=== PATIENT | female | born 1940 | race Caucasian/White ===

== ENCOUNTER 2017-11-14 13:20 | Outpatient (CLI) | payer MEDICARE, BC, SELFPAY ==
[2017-11-17 16:44] LABS: Vitamin D 25 Total 54.6 ng/ml (30-100)
== END 2017-11-14 13:21 ==
PROVIDERS: PCP Internal Medicine; Visit Provider Student in an Organized Health Care Education/Training Program
DX: R73.03 Prediabetes (principal); E78.5 Hyperlipidemia, unspecified; E03.9 Hypothyroidism, unspecified; K75.4 Autoimmune hepatitis
CPT/HCPCS: 36415; 82306

== ENCOUNTER 2017-11-16 00:59 | Outpatient (CLI) | payer MEDICARE, BC, SELFPAY ==
--- NOTE | 2017-11-16 12:00 | DI.REPORT_ITS ---
SYMPTOMS/DIAGNOSIS: SCREENING, Z12.39 MAMMOGRAM: Mammograms were interpreted according to the usual protocol including computer analysis with CAD system, tomosynthesis and C view imaging. The breasts are heterogeneously dense. No dominant mass or clumped microcalcification is identified in either breast. Current examination is compared with the previous examinations including September 2014 and there has been no gross interval change in appearance in comparison with the previous studies. CONCLUSION: No specific evidence of malignancy at this time. Routine screening examinations are suggested at yearly intervals in this age group according to the ACS/ACR guidelines. Category 1, breast density category C. MQSA ASSESSMENT OF FINDINGS: Negative. Category 1. Patient will receive a letter notifying them of these results. Bi-RADS category C. The breasts are heterogeneously dense, which may obscure small masses.
== END 2017-11-16 01:00 ==
PROVIDERS: PCP Internal Medicine; Visit Provider Student in an Organized Health Care Education/Training Program
DX: Z12.31 Encounter for screening mammogram for malignant neoplasm of breast (principal)
CPT/HCPCS: 77063; 77067

== ENCOUNTER 2018-03-05 09:01 | Outpatient (CLI) | payer MEDICARE, BC, SELFPAY ==
[2018-03-05 10:04] LABS: Hemoglobin A1C 6.1 % (4.5-6.2)
[2018-03-05 10:26] LABS: Anion Gap 9.3 mmol/L (3-11); BUN 19 mg/dL (7-18); CO2 28.7 mmol/L (21.0-32.0); CREATININE 0.92 mg/dL (0.55-1.02); Calcium 9.8 mg/dL (8.5-10.1); Chloride 104 mmol/L (98-107); Cholesterol 225 mg/dL (50-200); Estimated GFR 59.51 (mL/min/1.73m2); Glucose 111 mg/dL (70-100); HDL Cholesterol 59 mg/dL (40-60); LDL CHOLESTEROL 150 mg/dL (<100); Potassium 4.1 mmol/L (3.5-5.1); Sodium 142 mmol/L (136-145); Triglyceride 127 mg/dL (30-150)
== END 2018-03-05 09:21 ==
PROVIDERS: PCP Student in an Organized Health Care Education/Training Program; Visit Provider Student in an Organized Health Care Education/Training Program
DX: R73.01 Impaired fasting glucose (principal); E78.5 Hyperlipidemia, unspecified; E03.9 Hypothyroidism, unspecified; R73.9 Hyperglycemia, unspecified
CPT/HCPCS: 36415; 80048; 80061; 83721; 83036

== ENCOUNTER 2018-09-03 10:07 | Emergency (ER) | payer MEDICARE, BC, SELFPAY ==
[2018-09-03 10:15] VITALS: BP 139/72; PULSE 80; RESP 14; TEMP 36.7; O2SAT 94
--- NOTE | 2018-09-03 10:34 | DI.RAD_ITS ---
SYMPTOMS/DIAGNOSIS: RT MID WRIST PAIN AND DISTAL FOREARM PAIN RIGHT FOREARM: Two views were obtained and show no evidence of a fracture. RIGHT WRIST: Three views were obtained. Carpal alignment appears grossly intact. There is question of deformity of the navicular waist. Additional navicular view and oblique views requested to exclude nondisplaced navicular waist fracture. Navicular view of the wrist again shows a questioned deformity of the navicular waist raising the possibility of a nondisplaced navicular waist fracture. Otherwise the bones of carpus appear intact. CONCLUSION: Suspect nondisplaced navicular waist fracture.
[2018-09-03] MEDS: Lidocaine 5% Patch 1 PATCH TP (11:01)
--- NOTE | 2018-09-03 11:27 | W.ED.GENAD ---
Discharge Plan Disposition Patient Disposition: HOME Condition: Good Discharge Details Chief Complaint: Orthopedic Clinical Impression: Scaphoid fracture Primary Care Provider: Shivani Arenas ED Provider: Keenan Wells Home Meds and New Rx's Prescriptions: No Action multivitamin [Daily Vitamin] 1 EACH tablet 1 ea PO DAILY RF: 0 lutein extract-zeaxanthin ext 1 EACH capsule 1 ea PO DAILY RF: 0 salmon oil-omega-3 fatty acids [[place] Oil-1000] 1 EACH capsule 1 ea PO DAILY RF: 0 fluticasone propionate 16 GM spray,suspension 2 spry NS DAILY PRNQty: 1 RF: 2 levothyroxine 50 MCG tablet 50 mcg PO DAILY Qty: 90 RF: 3 naproxen sodium [Aleve] 220 MG tablet 220 mg PO PRN RF: 0 Discharge Instructions Instructions: Scaphoid Fracture (ED) Additional Instructions: The radiologist is concerned for a scaphoid wrist fracture. We have placed you in a thumb spica splint. Use this at all times. We will schedule orthopedic follow-up for you, they will contact you with an appointment. Please use Tylenol or Motrin as needed for pain. If you notice any worsening of your symptoms, or any new symptoms such as vomiting, diarrhea, fever, chills, shortness of breath, chest pain, numbness, weakness, or fainting , please return immediately to the emergency department for reevaluation. Please follow up with your primary care provider as soon as possible for reassessment and reevaluation. As always, it was a pleasure participating in your medical care today. Referrals: Shivani Arenas [Primary Care Provider] - Discharge Data Discharge Date/Time-TO BE ENTERED AT DEPARTURE: 09/03/18 12:04 Medical Decision Making This is a pleasant 78-year-old female who presents with right wrist pain, she does have some pain over the anatomical snuffbox. She is right-hand dominant. It began yesterday when she was lifting and carrying some heavy boxes with her significant other. Since then the pain has continued, it is worsened with movement, improved with nothing. 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 X-ray shows concern for potential scaphoid fracture at the waist. Patient has been placed in a thumb spica splint, she is tolerated this well and feels much better with this and Lidoderm patch. We will discharge home with close orthopedic follow-up. The patient requested [facility] follow-up as she states that she has seen orthopedics down there, however we can find no records of that, and [facility] denies any other recent orthopedic surgeries. We will refer for orthopedics here for further evaluation Exam(s) a RAD:XR forearm RT a RAD:XR wrist RT compl & navicular SYMPTOMS/DIAGNOSIS: RT MID WRIST PAIN AND DISTAL FOREARM PAIN RIGHT FOREARM: Two views were obtained and show no evidence of a fracture. RIGHT WRIST: Three views were obtained. Carpal alignment appears grossly intact. There is question of deformity of the navicular waist. Additional navicular view and oblique views requested to exclude nondisplaced navicular waist fracture. Navicular view of the wrist again shows a questioned deformity of the navicular waist raising the possibility of a nondisplaced navicular waist fracture. Otherwise the bones of carpus appear intact. CONCLUSION: Suspect nondisplaced navicular waist fracture. Ordered By: Keenan Wells DO Exam(s) a RAD:XR forearm RT a RAD:XR wrist RT compl & navicular SYMPTOMS/DIAGNOSIS: RT MID WRIST PAIN AND DISTAL FOREARM PAIN RIGHT FOREARM: Two views were obtained and show no evidence of a fracture. RIGHT WRIST: Three views were obtained. Carpal alignment appears grossly intact. There is question of deformity of the navicular waist. Additional navicular view and oblique views requested to exclude nondisplaced navicular waist fracture. Navicular view of the wrist again shows a questioned deformity of the navicular waist raising the possibility of a nondisplaced navicular waist fracture. Otherwise the bones of carpus appear intact. CONCLUSION: Suspect nondisplaced navicular waist fracture. Ordered By: Keenan Wells DO HPI General Date/Time Provider Initiated Documentation: 09/03/18 10:20. HPI Narrative: This is a 78-year-old female who presents for evaluation of right wrist pain. She is right-hand dominant. Patient states that yesterday she was lifting some heavy objects, and might have twisted the wrist a little funny. Pain is present in the lateral component of the wrist, and extends roughly 1 to 2 inches proximally. It is slightly worsened with movement of the fingers however she has no pain in the fingers. Notably worsened with movement of the wrist. She denies any fever, chills, numbness, tingling, or history of gout or other trauma. No other complaints at this time. No other modifying factors. Related Data Home Medications Medication Instructions Recorded Confirmed lutein extract-zeaxanthin ext 1 ea PO DAILY 07/15/14 multivitamin [Daily Vitamin] 1 ea PO DAILY 07/15/14 salmon oil-omega-3 fatty acids 1 ea PO DAILY 07/15/14 [Aledo Oil 1,000 Mg Softgel] fluticasone propionate 2 spry NS DAILY PRN #1 inh 06/16/15 levothyroxine 50 mcg PO DAILY #90 tab-cap 07/22/15 naproxen sodium [Aleve] 220 mg PO PRN 01/27/16 Allergies Allergy/AdvReac Type Severity Reaction Status Date / Time tobramycin AdvReac Mild Ophthalmic Unverified 09/03/18 11:36 tobramycin caused rash General Stated Complaint: Orthopedic CECELIA: 4 Review of Systems Review of Systems All systems reviewed & are unremarkable except as noted in HPI and below PFSH Surgical History Tonsillectomy stapendectomy Family History Mother Otosclerosis of both ears Brain tumor Father No problems noted. Grandmother Diabetes Stroke Thyroid condition Grandmother Throat cancer Stroke Sister Otosclerosis of both ears Other Arthritis Social History Smoking/Tobacco Use Status: Never Drug use: Never Do you feel safe at home: Yes Do you feel safe in your relationship?: Yes Exam Narrative Exam Narrative: 1.Const: Well-nourished, Well-developed, appearing stated age 2.Eyes: PERRL, no conjunctival injection, and symmetrical lids. 3.ENT: Atraumatic external nose and ears. Moist MM. Neck: Symmetric, trachea midline, No thyromegaly. 4.CVS: +S1/S2, No murmurs or gallops. Peripheral pulses 2+ and equal in all extremities. Brisk capillary refill in all extremities. 5.RESP: Unlabored respiratory effort. Clear to auscultation bilaterally. No wheezes rales or rhonchi 6.GI: Soft, Nontender/Nondistended, No hepatosplenomegaly. No guarding or rebound. 7.MSK: Normocephalic/Atraumatic, Extremities w/o deformity. No cyanosis or clubbing, Normal movement of all extremities. Patient does have mild tenderness over the anatomical snuffbox on the right wrist, as well as the wrist in general. No pain or tenderness on palpation of the fingers hand or forearm. Normal sensation throughout, brisk capillary refill, radial pulse +2 bilaterally. Normal sensation in all fingers including two-point discrimination. Normal abduction and abduction of the thumb. Normal flexion and extension of all fingers. 8.Skin: Warm, Dry. No rashes or lesions. 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 Sensation grossly intact, no focal neurologic deficits. 10.Psych: (AAO) x3. Appropriate mood and affect Course Vital Signs Temperature 36.7 C 09/03/18 10:15 Pulse 80 09/03/18 10:15 Respiratory Rate 14 09/03/18 10:15 Blood Pressure 139/72 09/03/18 10:15 Pulse Oximetry 94 L 09/03/18 10:15 Temperature 36.7 C 09/03/18 10:15 Temperature Source Skin 09/03/18 10:15 Pulse 80 09/03/18 10:15 Respiratory Rate 14 09/03/18 10:15 Blood Pressure 139/72 09/03/18 10:15 Blood Pressure Position Sitting 09/03/18 10:15 Pulse Oximetry 94 L 09/03/18 10:15 Oxygen Delivery Method Room Air 09/03/18 10:15 Oxygen Flow Rate 0 09/03/18 10:15 Pain Level 4 09/03/18 10:15
== END 2018-09-03 12:04 | disposition home or self-care (01) ==
PROVIDERS: Emergency Provider Student in an Organized Health Care Education/Training Program; PCP Student in an Organized Health Care Education/Training Program
DX: S62.011A Displaced fracture of distal pole of navicular [scaphoid] bone of right wrist, initial encounter for closed fracture (principal); W50.3XXA Accidental bite by another person, initial encounter
CPT/HCPCS: 99284; 73090; 73110; 99282; L3807

== ENCOUNTER 2018-10-08 08:19 | Outpatient (CLI) | payer MEDICARE, BC, SELFPAY ==
[2018-10-08 10:14] LABS: Hemoglobin A1C 6.4 % (4.5-6.2)
[2018-10-08 11:03] LABS: BUN 14 mg/dL (7-18); CREATININE 0.78 mg/dL (0.55-1.02); Calcium 9.5 mg/dL (8.5-10.1); Calculated LDL 124 mg/dL; Chloride 104 mmol/L (98-107); Cholesterol 200 mg/dL (50-200); Glucose 114 mg/dL (70-100); HDL Cholesterol 52 mg/dL (40-60); Potassium 4.2 mmol/L (3.5-5.1); Sodium 143 mmol/L (136-145); TSH 3.58 uIU/mL (0.358-3.74); Triglyceride 124 mg/dL (30-150)
== END 2018-10-08 08:39 ==
PROVIDERS: PCP Student in an Organized Health Care Education/Training Program; Visit Provider Student in an Organized Health Care Education/Training Program
DX: E78.00 Pure hypercholesterolemia, unspecified (principal); E03.9 Hypothyroidism, unspecified; R73.01 Impaired fasting glucose; R73.03 Prediabetes; K75.9 Inflammatory liver disease, unspecified
CPT/HCPCS: 36415; 80048; 80061; 83721; 83036; 84443

== ENCOUNTER 2019-02-05 01:26 | Outpatient (CLI) | payer MEDICARE, BC, SELFPAY ==
--- NOTE | 2019-02-05 16:50 | DI.DEXA_ITS ---
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 COMPARISON: No exams were available for comparison FINDINGS: Findings for lumbar spine scanning are T-score 1.0. Findings for left forearm scanning or T-score -0.5. Findings for left hip scanning are T-score -1.1 with left femoral neck T-score -1.3. IMPRESSION: Findings consistent with osteopenia according to the WHO criteria. Please note that the lateral verte bral scanogram shows mild anterior compression fracture of L2 vertebral body.
== END 2019-02-05 01:46 ==
PROVIDERS: PCP Student in an Organized Health Care Education/Training Program
DX: M80.08XA Age-related osteoporosis with current pathological fracture, vertebra(e), initial encounter for fracture (principal); M85.88 Other specified disorders of bone density and structure, other site
CPT/HCPCS: 77080

== ENCOUNTER 2020-01-13 01:36 | Outpatient (CLI) | payer MEDICARE, BC, SELFPAY ==
[2020-01-14 17:46] LABS: COVID-19 RT-PCR Result NEGATIVE (Negative)
== END 2020-01-13 01:56 ==
PROVIDERS: PCP Student in an Organized Health Care Education/Training Program; Visit Provider Nurse Practitioner Family
DX: Z11.59 Encounter for screening for other viral diseases (principal)
CPT/HCPCS: U0003

== ENCOUNTER 2020-12-09 20:43 | Outpatient (CLI) | payer MEDICARE, BC, SELFPAY ==
[2020-12-09 10:09] LABS: Abs Immature Grans 0.02 10^3/uL (0.0-0.06); Absolute Basophil Count 0.09 10^3/uL (0.0-0.2); Absolute Eosinophil Count 0.45 10^3/uL (0.0-0.7); Absolute Lymphocyte Count 1.94 10^3/uL (1.2-3.4); Absolute Monocyte Count 0.53 10^3/uL (0.1-0.8); Absolute Neutrophil Count 2.58 10^3/uL (1.2-6.7); Basophils % 1.6; ESR 12 mm/hr (0-30); HCT 41.4 % (36.0-46.0); HGB 13.7 g/dL (11.2-15.7); Immature Grans % 0.4; Lymphocytes % 34.6; MCH 30.9 pg (27.0-33.0); MCHC 33.1 % (32.0-36.0); MCV 93.5 fL (80-95); Monocytes % 9.4; Nucleated RBC 0 %; Platelet Count 163 10^3/uL (130-400); RBC 4.43 10^6/uL (3.93-5.22); RDW 13.2 % (11.7-14.6); RDW-SD 45.7 fL; WBC 5.61 10^3/uL (4.4-10.8)
[2020-12-09 11:22] LABS: ALT 37 U/L (14-59); AST 23 U/L (15-37); Albumin 3.7 g/dL (3.4-5.0); Alkaline Phosphatase 66 U/L (46-116); Bilirubin, Direct 0.3 mg/dL (0.0-0.2); Bilirubin, Total 1.5 mg/dL (0.2-1.0); C-Reactive Protein 0.29 mg/dL (0.0-0.3); Estimated GFR 53.62 (mL/min/1.73m2); Total Protein 7.2 g/dL (6.4-8.2)
== END 2020-12-09 20:44 | disposition home or self-care (01) ==
LOC: LBO 20:52
PROVIDERS: PCP Student in an Organized Health Care Education/Training Program; Visit Provider Internal Medicine
DX: M25.512 Pain in left shoulder (principal); G89.29 Other chronic pain; M25.511 Pain in right shoulder; M25.551 Pain in right hip; M25.552 Pain in left hip; M13.0 Polyarthritis, unspecified; M54.2 Cervicalgia
CPT/HCPCS: 36415; 80076; 85652; 82565; 85025; 86140

== ENCOUNTER 2021-02-02 15:00 | Outpatient (REF) | payer MEDICARE, BC, SELFPAY ==
[2021-02-08 14:51] LABS: Helicobacter pylori Ag, Feces Negative (Negative)
== END 2021-02-02 15:01 | disposition home or self-care (01) ==
LOC: LBN 15:00
PROVIDERS: PCP Student in an Organized Health Care Education/Training Program; Visit Provider Internal Medicine Gastroenterology
DX: R10.13 Epigastric pain (principal); R14.0 Abdominal distension (gaseous); R10.10 Upper abdominal pain, unspecified
CPT/HCPCS: 87338

== ENCOUNTER 2022-08-08 10:20 | Emergency (ER) | payer MEDICARE, BC, SELFPAY ==
[2022-08-08] VITALS (72 sets, daily range): BP systolic 130–149; BP diastolic 56–80; PULSE 49–70; RESP 12–23; TEMP 36.8; O2SAT 77–98
--- NOTE | 2022-08-08 10:49 | W.ED.GENAD ---
Discharge Plan Disposition Patient Disposition: Home Condition: Stable Discharge Details Clinical Impression: COVID Primary Care Provider: Shivani Arenas ED Provider: Oriana Hobson Home Meds and New Rx's Prescriptions: Continued multivitamin [Daily Vitamin] 1 EACH tablet 1 ea PO DAILY lutein extract-zeaxanthin ext 1 EACH capsule 1 ea PO DAILY Patient Comments: unsure of dose-LH salmon oil-omega-3 fatty acids [[place] Oil-1000] 1 EACH capsule 1 ea PO DAILY fluticasone propionate 16 GM spray,suspension 2 spry NS DAILY PRNQty: 1 levothyroxine 50 MCG tablet 50 mcg PO DAILY Qty: 90 naproxen sodium [Aleve] 220 MG tablet 220 mg PO PRN Discharge Instructions Instructions: Viral Syndrome (ED) Additional Instructions: Your labs and chest x-ray are reassuring here today. Your continued malaise is likely associated with a known COVID virus. Please continue to encourage hydration. Please finish out your course of Paxlovid. Your liver panel was reassuring here today. Please follow-up with primary care at the end of the week for reevaluation. If you develop increased chest pain, shortness of breath or other new/worsening symptom please seek care urgently once again. Referrals: Shivani Arenas [Primary Care Provider] - Discharge Data Discharge Date/Time-TO BE ENTERED AT DEPARTURE: 08/08/22 14:01 Medical Decision Making Patient is a pleasant 82-year-old female presenting today with chief complaint of being COVID-positive and feeling generally unwell despite starting Paxlovid 3 days ago. She is accompanied by her . She is not feeling significantly worse but states that she was seen she would be feeling improved. Also endorses some chest tightness which began 5 days ago. She is not able to identify any triggers of this discomfort, is not currently endorsing any discomfort. Pain does not radiate. It is not worsened with taking a deep breath. There is no pleuritic nature of this discomfort. She also has not noted that it sisterly worse when exerting herself. She denies any shortness of breath. Denies any history of heart disease, blood clots. She does report that she has a history of liver dysfunction. This had not been checked at our facility recently. He is typically followed at [facility]. On exam, patient appears nontoxic. Vital signs are stable. She appears well-hydrated. Reports that she is been urinating more than typical but that she has been increasing her fluids. Denies any dysuria. Her lungs are clear, normal cardiac exam. Posterior oropharynx is mildly erythematous but no exudate or swelling is appreciated. No palpable lymphadenopathy. She does have some retraction of the bilateral tympanic membranes and endorses some discomfort. I am not see evidence to suggest a bacterial infection. With her rhinorrhea and increased nasal congestion, this may be associated with eustachian tube dysfunction. Patient reports that this has been a problem for her in the past. She does not have any lower extremity edema or calf tenderness. Primary concern at this time is continuation of her COVID symptoms. Also considered potential ACS given her chest discomfort although this does not sound to be exertionally based. Not having any pleuritic pain, shortness of breath and is oxygenating well with normal heart rate. Do not have suspicion at this time for pulmonary embolism. Also considered potential bacterial regarding infection such as pneumonia. Will obtain a chest x-ray, baseline labs. Will obtain EKG. Also concerned with the report of her previous liver dysfunction and Paxlovid. LUNGS: Poorly inflated but clear.? No pleural abnormality seen. HEART: Normal size. AORTA: Normal diameter. BONES: Unremarkable for age.? Soft tissues: Unremarkable. IMPRESSION: No acute? findings. Labs reviewed. No leukocytosis. Stable H&H. CMP without significant abnormality. Troponin within normal limits. Given the length of time she is been having her chest discomfort, I do not feel that repeat troponin is warranted at this time. She contitnues to be hemodynamically stable. Has not had any discomfort here. Hydrating orally. Advised on expected course of illness. Strict return precautions given. Encouraged close f/u with PCP. All of her questions and concerns were addressed, she is in agreement with this plan. HPI General Date/Time Provider Initiated Documentation: 08/08/22 10:20. Limitations to Documentation: no limitations. Information obtained by: patient, family and RN notes reviewed. History of Present Illness 82 year old F presents to the emergency department with the chief complaint of known COVID positive, continued fatigue, described as moderate, Quality is described as other (fatigue, denies pain), Patient started experiencing this day(s) and it has been constant. Immobilization improves symptom(s), Movement worsens symptoms . Patient notes cough, loss of appetite and malaise; denies chest pain, fever/chills, headaches, nausea/vomiting, rash, shortness of breath and syncope. Patient did receive the following treatments prior to arrival, other (on Paxlovid) Related Data Home Medications Medication Instructions Recorded Confirmed lutein extract 15 mg-zeaxanthin 1 ea PO DAILY 07/15/14 extract 0.7 mg capsule multivitamin (Daily Vitamin tablet) 1 ea PO DAILY 07/15/14 salmon oil-omega-3 fatty acids 1 ea PO DAILY 07/15/14 1,000 mg-200 mg capsule ([place] Oil-) fluticasone propionate 50 2 spry NS DAILY PRN #1 inh 06/16/15 mcg/actuation nasal spray,suspension levothyroxine 50 mcg tablet 50 mcg PO DAILY #90 tab-caps 07/22/15 naproxen sodium 220 mg tablet 220 mg PO PRN 01/27/16 (Aleve) Allergies Allergy/AdvReac Type Severity Reaction Status Date / Time tobramycin AdvReac Mild Ophthalmic Unverified 09/03/18 11:36 tobramycin caused rash General Stated Complaint: GenMedical CECELIA: 3 Review of Systems Constitutional Constitutional: Reports as per HPI and Denies headache(s) Eyes Eyes: Reports as per HPI, Denies eye discharge and Denies irritation ENT Ears, Nose, Mouth, and Throat: Reports as per HPI and Denies headache(s) Cardiovascular Cardiovascular: Reports as per HPI, Denies chest pain and Denies dyspnea Respiratory Respiratory: Reports as per HPI and Denies dyspnea Gastrointestinal Gastrointestinal: Reports as per HPI, Denies abdominal pain, Denies change in bowel habits, Denies nausea and Denies vomiting Integumentary/Breasts Skin/Breast: Reports as per HPI and Denies rash Neurologic Neurologic: Reports as per HPI and Denies headache(s) PFSH All Active Problems (Updated 08/08/22 @ 13:49 by AISLINN Hughes) COVID (Acute) Encounter for screening for other viral diseases (Acute) Shingles (Acute) Surgical History (Updated 01/17/18 @ 14:37 by [email or web address] [place]) stapendectomy x2-L x1-R Tonsillectomy at 18 mos Family History Mother , brain tumor Otosclerosis of both ears Brain tumor Father No problems noted. Grandmother Diabetes Stroke Thyroid condition Grandmother Throat cancer Stroke Sister Otosclerosis of both ears Other Arthritis Social History Smoking/Tobacco Use Status: Never Smoking risk assessment performed?: Yes Alcohol Intake: never Drug use: Never Substance use type: does not use Do you feel safe at home: Yes Do you feel safe in your relationship?: Yes Exam Const General: cooperative, healthy appearing, comfortable, no acute distress, well developed and well groomed Nutritional Appearance: average body habitus and well nourished Orientation: alert and awake [facility] Head: normal to inspection, normocephalic and atraumatic Ears: hearing grossly normal bilaterally, external ears normal and TM's normal bilaterally General nose exam: external nose normal and nares normal Face and sinus: normal facial exam, sinuses nontender and face symmetric Mouth: oral mucosae normal, lip normal, tongue normal, oropharynx normal and moist mucous membranes Teeth and gingiva: dentition normal Throat: posterior oropharynx normal, tonsils normal and uvula midline Eyes General: appearance normal, both eyes and all related structures Neck Neck: normal visual inspection, full ROM, no lymphadenopathy and no meningeal signs Resp Effort & Inspection: normal respiratory effort, able to speak in complete sentences and no respiratory distress Auscultation: clear to auscultation bilaterally, no rales, no rhonchi and no wheezes Cardio Rate: regular rate Rhythm: regular rhythm Heart Sounds: S1 normal and S2 normal Skin General skin exam: no rashes or lesions noted Neuro General: patient alert and patient awake Cognition: normal cognition Speech: speech normal Gait: normal gait Extrem General: normal to inspection, no pedal edema, no calf tenderness and other (intact distal pulses) Psych Appearance: grossly normal and well kempt Mental Status: mental status grossly normal Speech and Movement: speech and movement normal Course Vital Signs Vital signs: Vital Signs Temperature 36.8 C 08/08/22 10:36 Pulse 70 08/08/22 10:36 Respiratory Rate 20 08/08/22 10:36 Blood Pressure 130/80 08/08/22 10:36 Pulse Oximetry 98 08/08/22 10:36 Temperature 36.8 C 08/08/22 10:36 Temperature Source Oral 08/08/22 10:36 Pulse 70 08/08/22 10:36 Respiratory Rate 20 08/08/22 10:36 Respiratory Effort Normal, Non-Labored 08/08/22 10:39 Blood Pressure 130/80 08/08/22 10:36 Blood Pressure Position Sitting 08/08/22 10:36 Pulse Oximetry 98 08/08/22 10:36 Oxygen Delivery Method Room Air 08/08/22 10:36 Oxygen Flow Rate 0 08/08/22 10:36
--- NOTE | 2022-08-08 11:00 | DI.RAD_ITS ---
Exam(s) XR PORTABLE CHEST AP EXAM: XR PORTABLE CHEST APzz CLINICAL HISTORY: covid + TECHNIQUE: 2D digital imaging was performed. COMPARISON: CT CHEST ABD PELVIS WITH CONTRAST from 11/01/2015 CR XR DEXA BONE DENSITY W/WO MEÑO from 02/05/2019 FINDINGS: LUNGS: Poorly inflated but clear. No pleural abnormality seen. HEART: Normal size. AORTA: Normal diameter. BONES: Unremarkable for age. Soft tissues: Unremarkable. IMPRESSION: No acute findings. DATA REPOSITORY: RADIATION DOSE DELIVERED:
--- NOTE | 2022-08-08 11:15 | RT.EKG_ITS ---
APPROVED REPORT Exam: Resting ECG Reason for Exam: sob, covid Patient Location: E HR:59 bpm ECG Measurements Heart Rate 59 AXIS HI 189 P 31 QRSd 95 QRS -33 QT 471 T 34 QTc 465 Conclusion Sinus bradycardia...rate< 60 Left axis deviation...QRS axis (-30,-90) Low voltage, precordial leads...precordial leads <1.0mV Consider anterior infarct...Q >30mS in V2-V5 Sinus bradycardia narrow complex at a rate of 59. Left axis deviation no signs of LVH. QTc and HI i ntervals within normal limits. No acute injury pattern. No prior for comparison.
[2022-08-08 11:46] LABS: Abs Immature Grans 0.01 10^3/uL (0.0-0.06); Absolute Basophil Count 0.04 10^3/uL (0.0-0.2); Absolute Eosinophil Count 0.33 10^3/uL (0.0-0.7); Absolute Lymphocyte Count 1.76 10^3/uL (1.2-3.4); Absolute Monocyte Count 0.52 10^3/uL (0.1-0.8); Absolute Neutrophil Count 2.25 10^3/uL (1.2-6.7); Basophils % 0.8; Eosinophils % 6.7; HCT 42.8 % (36.0-46.0); HGB 14.2 g/dL (11.2-15.7); Immature Grans % 0.2; Lymphocytes % 35.8; MCH 31.1 pg (27.0-33.0); MCHC 33.2 % (32.0-36.0); MCV 94 fL (80-95); MPV 12.4 fL (8.0-11.0); Monocytes % 10.6; Neutrophils % 45.9; Platelet Count 123 10^3/uL (130-400); RBC 4.57 10^6/uL (3.93-5.22); RDW 13.4 % (11.7-14.6); RDW-SD 46.3 fL; WBC 4.91 10^3/uL (4.4-10.8)
[2022-08-08 12:03] LABS: ALT 50 U/L (14-59); AST 32 U/L (15-37); Albumin 3.2 g/dL (3.4-5.0); Alkaline Phosphatase 77 U/L (46-116); Anion Gap 5.4 mmol/L (3-11); BUN 12 mg/dL (7-18); CO2 29.6 mmol/L (21.0-32.0); CREATININE 0.9 mg/dL (0.55-1.02); Calcium 9.3 mg/dL (8.5-10.1); Chloride 103 mmol/L (98-107); Estimated GFR 64.63 (mL/min/1.73m2); Glucose 143 mg/dL (74-106); Potassium 3.8 mmol/L (3.5-5.1); Sodium 138 mmol/L (136-145); Total Protein 7.2 g/dL (6.4-8.2); Troponin I < 50 ng/L (<or=60)
[2022-08-08 13:35] LABS: Bilirubin Negative (Negative); Blood Trace-intact (Negative); Clarity Clear (Clear); Glucose Negative (Negative); Ketones Negative (Negative); Leukocyte Esterase Negative (Negative); Nitrite Negative (Negative); Urobilinogen 0.2 mg/dL (Up to 0.2)
[2022-08-08 13:44] LABS: Bacteria Negative HPF (Negative); C & S Indicated? No; Crystals Negative HPF (Negative); Epithelial Cells Rare HPF (Negative); Mucus Negative (Negative); RBC 0-2 HPF (0-2); WBC 0-2 HPF (0-5)
[2022-08-08 13:45] LABS: Casts Negative LPF (Negative)
== END 2022-08-08 14:01 | disposition home or self-care (01) ==
PROVIDERS: Emergency Provider Physician Assistant; PCP Student in an Organized Health Care Education/Training Program
DX: U07.1 COVID-19 (principal); R06.02 Shortness of breath
CPT/HCPCS: 36415; 80053; 93005; 99284; 71045; 81003; 81015; 83735; 84484; 85025; 93010; 99283

== ENCOUNTER 2022-09-20 18:02 | Emergency (ER) | payer MEDICARE, BC, SELFPAY ==
[2022-09-20] VITALS (21 sets, daily range): BP systolic 123–147; BP diastolic 54–90; PULSE 74–89; RESP 20; TEMP 36; O2SAT 90–98
--- NOTE | 2022-09-20 18:15 | RT.EKG_ITS ---
APPROVED REPORT Exam: Resting ECG Reason for Exam: n/v Patient Location: E HR:86 bpm ECG Measurements Heart Rate 86 AXIS WI 214 P 17 QRSd 95 QRS -40 QT 407 T 58 QTc 486 Conclusion Sinus rhythm...normal P axis, V-rate 60- 99 Borderline prolonged WI interval...WI >212, V-rate 50- 90 LAD, consider left anterior fascicular block...axis(240,-40), S>R II III aVF Probable anterior infarct, age indeterminate...Q >35mS, T neg, V2-V5
--- NOTE | 2022-09-20 18:15 | DI.CT_ITS ---
Exam(s) CT ABDOMEN PELVIS W EXAM: CT ABDOMEN PELVIS W CLINICAL HISTORY: n/v, abdominal pain TECHNIQUE: Imaging Protocol: Axial computed tomography images with coronal and sagittal reformatted images were created and reviewed CONTRAST MATERIAL: Intravenous: Omnipaque 350 Contrast volume:100 mL Oral: No COMPARISON: CT CHEST ABD PELVIS WITH CONTRAST from 11/01/2015 FINDINGS: ABDOMEN: Lung Bases: Mild dependent atelectasis. Liver: Normal density. There is a lobulated contour of the liver raising the question of hepatic cir rhosis. No measurable mass. Portal, Superior Mesenteric, and Splenic Veins: Unremarkable. Gallbladder and Biliary Tract: Cholelithiasis. No biliary ductal dilatation. Pancreas: Normal density, no abnormal calcifications or inflammatory process. Spleen: Normal. Adrenals: No masses seen. Kidneys: Normal size, contour and axis. No radiodense stones or obstructive uropathy. There is a stab le simple cyst in the superior pole of the right kidney. No follow-up is recommended. Abdominal Aorta: Abdominal portion non-dilated. Atherosclerosis. Bowel: There is diverticulosis seen in the colon, but no evidence of acute diverticulitis. There is a moderate amount of stool throughout the colon. There is mild thickening of the wall of the distal stomach. There is no evidence of bowel obstruction. There is mild wall thickening in small bowel lo ops. Appendix is unremarkable. Peritoneal Cavity: No ascites, collection or mesenteric inflammatory response. No free air. Lymph Nodes: Within normal limits. Bones: Within normal limits for the patient's age. Soft Tissues: There is a small fat containing umbilical hernia. PELVIS: Bladder: The urinary bladder is incompletely distended but grossly unremarkable. Reproductive Organs: Status post hysterectomy. Lymph Nodes: Within normal limits. Bones: Within normal limits for the patient's age. IMPRESSION: 1. Mild thickening of small bowel loops suggesting an inflammatory infectious enteritis. 2. Colonic diverticulosis without diverticulitis. 3. Cholelithiasis. No CT evidence of acute cholecystitis. 4. Nonspecific mild thickening of the wall of the distal stomach. This may be due to underdistention . Gastritis cannot be excluded. Please correlate clinically. RADIATION DOSE DELIVERED: 1,098.57mGy.cm Total DLP DATA REPOSITORY: All CT scans at this facility are submitted to the National Radiology Data Registry (NRDR) Dose Index Registry (DIR) with the [employer] (ACR). RADIATION OPTIMIZATION: All CT scans at this facility use at least one of these dose optimization te chniques: automated exposure control; mA and/or kV adjustment per patient size (includes targeted exa ms where dose is matched to clinical indication); or iterative reconstruction.
--- NOTE | 2022-09-20 18:15 | DI.RAD_ITS ---
Exam(s) XR CHEST 2V PA LATERAL EXAM: XR CHEST 2V PA LATERAL CLINICAL HISTORY: n/v, ?aspiration TECHNIQUE: 2D digital imaging was performed of the chest. Two images were obtained. PA and lateral views were obtained. COMPARISON: CR XR PORTABLE CHEST AP from 08/08/2022 FINDINGS: MEDIASTINUM: Normal. HEART: Normal. PULMONARY VASCULATURE: Normal. LUNGS: Clear. PLEURAL SPACE: No pleural effusion or pneumothorax. BONE:Within normal limits for the patient's age. OTHER FINDINGS:Normal. IMPRESSION: No acute pulmonary findings. DATA REPOSITORY: RADIATION DOSE DELIVERED:
--- NOTE | 2022-09-20 18:22 | W.ED.GENAD ---
Discharge Plan Discharge Details Chief Complaint: Nausea/Vomit/Diar Clinical Impression: Abdominal pain, N&V (nausea and vomiting) Primary Care Provider: Shivani Arenas ED Provider: Smith Stanton Home Meds and New Rx's Prescriptions: No Action multivitamin [Daily Vitamin] 1 EACH tablet 1 ea PO DAILY lutein extract-zeaxanthin ext 1 EACH capsule 1 ea PO DAILY Patient Comments: unsure of dose-LH salmon oil-omega-3 fatty acids [[place] Oil-1000] 1 EACH capsule 1 ea PO DAILY fluticasone propionate 16 GM spray,suspension 2 spry NS DAILY PRNQty: 1 levothyroxine 50 MCG tablet 50 mcg PO DAILY Qty: 90 naproxen sodium [Aleve] 220 MG tablet 220 mg PO PRN Medical Decision Making 82 yo female who has had a prior hysterectomy, 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 She states she was seen earlier at a clinic for sinusitis symptoms and took her first dose of augmentin. About 2 hours later she started to have n/v that has been persistent and abdominal discomfort. She denies rashes, dyspnea, chest pain, tongue swelling. She has taken penicillins in the past with no issues. She arrives with stable vitals but is actively throwing up on arrival. She has no tongue swelling, no hives, clear lungs. She has a mildly distended abdomen which she is not sure is new for her or not. SHe is tender in the upper quadrants, no guarding or rebound. Unclear etiology for her symptoms, could be a medication reaction though doesn't appear to have other symptoms to suggest anaphylaxis. Will proceed with cbc, cmp, lipase, ekg/troponin, and ct abdomen/pelvis to evaluate for possible sbo. PAtient stable, will be signed out to oncoming provider pending ct results and and response to zofran/iv fluids Differential Diagnosis Differential Diagnosis: sbo, medication reaction, pancreatitis Medical Records Medical records reviewed: Yes I reviewed the patient's medical records. Lab Data Lab results reviewed: Yes I reviewed the patient's lab results. ECG Data Attestation: I personally reviewed and interpreted this ECG (s) as follows: Prior ECG tracings: available for review Interpretation: sinus, rate of 86, pr 214, no stemi HPI General Date/Time Provider Initiated Documentation: 09/20/22 18:10. Limitations to Documentation: no limitations. Information obtained by: patient. History of Present Illness 82 year old F presents to the emergency department with the chief complaint of n/v, described as moderate, Patient started experiencing this hour(s) (2) and it has been constant. No relieving factors improve symptom(s), No exacerbating factors reported . Patient notes nausea/vomiting; denies chest pain and shortness of breath. Patient did receive the following treatments prior to arrival, none Related Data Home Medications Medication Instructions Recorded Confirmed lutein extract 15 mg-zeaxanthin 1 ea PO DAILY 07/15/14 extract 0.7 mg capsule multivitamin (Daily Vitamin tablet) 1 ea PO DAILY 07/15/14 salmon oil-omega-3 fatty acids 1 ea PO DAILY 07/15/14 1,000 mg-200 mg capsule ([place] Oil-) fluticasone propionate 50 2 spry NS DAILY PRN #1 inh 06/16/15 mcg/actuation nasal spray,suspension levothyroxine 50 mcg tablet 50 mcg PO DAILY #90 tab-caps 07/22/15 naproxen sodium 220 mg tablet 220 mg PO PRN 01/27/16 (Aleve) Allergies Allergy/AdvReac Type Severity Reaction Status Date / Time tobramycin AdvReac Mild Ophthalmic Unverified 09/20/22 18:08 tobramycin caused rash General Stated Complaint: Nausea/Vomit/Diar CECELIA: 3 Review of Systems All systems reviewed & are unremarkable except as noted in HPI and below Constitutional Constitutional: Denies chills, Denies fever(s) and Denies weakness Cardiovascular Cardiovascular: Denies chest pain and Denies dyspnea Respiratory Respiratory: Denies cough and Denies dyspnea Gastrointestinal Gastrointestinal: Reports abdominal pain and Reports vomiting Genitourinary Genitourinary: Denies dysuria Musculoskeletal Musculoskeletal: Denies joint swelling Integumentary/Breasts Skin/Breast: Denies rash Neurologic Neurologic: Denies weakness Allergic/Immunologic Allergic/Immunologic: Denies urticaria PFSH All Active Problems (Updated 09/20/22 @ 19:38 by Smith Stanton MD) COVID (Acute) Abdominal pain (Acute) N&V (nausea and vomiting) (Acute) Encounter for screening for other viral diseases (Acute) Shingles (Acute) Surgical History (Updated 01/17/18 @ 14:[address]) stapendectomy x2-L x1-R Tonsillectomy at 18 mos Family History Mother , brain tumor Otosclerosis of both ears Brain tumor Father No problems noted. Grandmother Diabetes Stroke Thyroid condition Grandmother Throat cancer Stroke Sister Otosclerosis of both ears Other Arthritis Social History Smoking/Tobacco Use Status: Never Smoking risk assessment performed?: Yes Alcohol Intake: never Drug use: Never Substance use type: does not use Do you feel safe at home: Yes Do you feel safe in your relationship?: Yes Exam Const Orientation: alert HENMT Head: normal to inspection Ears: external ears normal General nose exam: external nose normal Mouth: moist mucous membranes Eyes General: appearance normal, both eyes and all related structures Neck Neck: normal visual inspection Resp Effort & Inspection: normal respiratory effort and able to speak in complete sentences Auscultation: clear to auscultation bilaterally Cardio Rate: regular rate Heart Sounds: no murmurs GI Palpation: soft and tender Skin General skin exam: no rashes or lesions noted Neuro General: patient alert and patient oriented x3 Extrem General: normal to inspection Psych Mental Status: mental status grossly normal Course Vital Signs Vital signs: Vital Signs Temperature 36 C L 09/20/22 18:05 Pulse 89 09/20/22 18:05 Respiratory Rate 20 09/20/22 18:05 Blood Pressure 123/79 09/20/22 18:05 Pulse Oximetry 95 09/20/22 18:05 Temperature 36 C L 09/20/22 18:05 Temperature Source Skin 09/20/22 18:05 Pulse 89 09/20/22 18:05 Respiratory Rate 20 09/20/22 18:05 Respiratory Effort Normal, Non-Labored 09/20/22 18:09 Blood Pressure 123/79 09/20/22 18:05 Blood Pressure Position Sitting 09/20/22 18:05 Pulse Oximetry 95 09/20/22 18:05 Oxygen Delivery Method Room Air 09/20/22 18:05 Oxygen Flow Rate 0 09/20/22 18:05 Pain Level 7 09/20/22 18:05 Sign Out Sign Out Data: Sign Out Comment: hx of hysterectomy, started augmentin today for sinusitis, a few hours later started to have n/v with abdominal pain, pending ct abd/pelvis and response to zofran Last updated by Smith Stanton MD at 09/20/22 19:37
[2022-09-20 18:30] LABS: Lactate 1.9 mmol/L (0.6-1.4)
[2022-09-20 18:31] LABS: Abs Immature Grans 0.02 10^3/uL (0.0-0.06); Absolute Basophil Count 0.04 10^3/uL (0.0-0.2); Absolute Lymphocyte Count 3.04 10^3/uL (1.2-3.4); Absolute Monocyte Count 0.39 10^3/uL (0.1-0.8); Absolute Neutrophil Count 4.19 10^3/uL (1.2-6.7); Basophils % 0.5; Eosinophils % 2.5; HCT 47.3 % (36.0-46.0); HGB 15.7 g/dL (11.2-15.7); Immature Grans % 0.3; Lymphocytes % 38.6; MCH 30.5 pg (27.0-33.0); MCHC 33.2 % (32.0-36.0); MCV 92 fL (80-95); MPV 11.7 fL (8.0-11.0); Monocytes % 4.9; Neutrophils % 53.2; Platelet Count 195 10^3/uL (130-400); RBC 5.14 10^6/uL (3.93-5.22); RDW 13.5 % (11.7-14.6); RDW-SD 46.1 fL; WBC 7.88 10^3/uL (4.4-10.8)
[2022-09-20 18:45] LABS: PTT Activated 24.7 sec (21.5-31.9); Prothrombin Time 10.4 sec (9.3-11.0)
[2022-09-20 18:56] LABS: ALT 67 U/L (14-59); AST 45 U/L (15-37); Albumin 4.1 g/dL (3.4-5.0); Alkaline Phosphatase 90 U/L (46-116); Anion Gap 10.3 mmol/L (3-11); BUN 13 mg/dL (7-18); Bilirubin, Direct 0.2 mg/dL (0.0-0.2); Bilirubin, Total 0.8 mg/dL (0.2-1.0); CO2 28.7 mmol/L (21.0-32.0); CREATININE 1.1 mg/dL (0.55-1.02); Calcium 9.9 mg/dL (8.5-10.1); Chloride 104 mmol/L (98-107); Glucose 126 mg/dL (74-106); Lipase 45 U/L (16-77); Magnesium 2.1 mg/dL (1.8-2.4); Potassium 3.6 mmol/L (3.5-5.1); Sodium 143 mmol/L (136-145); TSH (W/Ref FT4) 3.18 uIU/mL (0.36-3.74); Total Protein 8.6 g/dL (6.4-8.2); Troponin I < 50 ng/L (<or=60)
[2022-09-20] MEDS: Normal Saline - Diluent 50 ML VIAL IJ (19:27)
[2022-09-20] MEDS: Omnipaque 350 MG/ML 100 ML BTL IJ (19:28)
[2022-09-20] MEDS: Normal Saline 1,000 ML 1000 ML IV (19:29)
[2022-09-20] MEDS: Normal Saline Flush 10 ML SYR IVP (19:29)
[2022-09-20] MEDS: Ondansetron 4 MG/2 ML VIAL IVP (19:29)
[2022-09-20 19:34] LABS: Bilirubin Small (Negative); Blood Negative (Negative); Clarity Clear (Clear); Glucose Negative (Negative); Ketones Trace mg/dL (Negative); Leukocyte Esterase Negative (Negative); Nitrite Negative (Negative); Urobilinogen 0.2 mg/dL (Up to 0.2); pH 5.5 (5-8)
[2022-09-20 19:42] LABS: RBC 0-2 HPF (0-2); WBC 0-2 HPF (0-5)
[2022-09-20 19:43] LABS: Bacteria Rare HPF (Negative); C & S Indicated? No; Casts 3-5 Hyaline LPF (Negative); Crystals Negative HPF (Negative); Epithelial Cells Rare HPF (Negative); Mucus Moderate (Negative)
--- NOTE | 2022-09-20 20:19 | DI.VRAD_ITS ---
PROCEDURE INFORMATION: Exam: CT Abdomen And Pelvis With Contrast Exam date and time: 09/20/2022 7:39 PM Age: 82 years old Clinical indication: Vomiting; Patient HX: N/v, abdominal pain TECHNIQUE: Imaging protocol: Computed tomography of the abdomen and pelvis with contrast. Radiation optimization: All CT scans at this facility use at least one of these dose optimization techniques: automated exposure control; mA and/or kV adjustment per patient size (includes targeted exams where dose is matched to clinical indication); or iterative reconstruction. Contrast material: OMNIPAQUE 350; Contrast volume: 100 ml; Contrast route: INTRAVENOUS (IV); COMPARISON: CT CHEST ABD PELVIS WITH CONTRAST 11/01/2015 11:55 PM FINDINGS: Lungs: Mild dependent atelectasis/edema noted in the lung bases. Liver: Liver attenuation is low. Negative for mass or abscess. Gallbladder and bile ducts: Multiple small calcified stones layer dependently in the gallbladder. No inflammatory change. No ductal dilatation. Pancreas: Normal. No ductal dilation. Spleen: Normal. No splenomegaly. Adrenal glands: Normal. No mass. Kidneys and ureters: Symmetric enhancement. Negative for hydronephrosis. Ureters are not dilated. No stones are observed. Stomach and bowel: Unremarkable stomach. Nondilated small bowel. Fat planes around loops of small bowel are indistinct. There are no inflammatory changes observed around the colon. Moderate gas and stool are noted in the colon. Scattered diverticula are present in the colon. Appendix: Normal appendix. Intraperitoneal space: Mild mesenteric fat stranding. No significant free fluid. Negative for free air. Negative for abscess. Vasculature: Moderate vascular calcifications. Negative for abdominal aortic aneurysm. Lymph nodes: Mesenteric lymph nodes are mildly prominent. Negative for pathologic lymphadenopathy. Urinary bladder: Unremarkable as visualized. Reproductive: The uterus is surgically absent. Negative for adnexal mass or cyst. Bones/joints: Mild levoscoliosis noted. Endplate depression noted at L2. Multilevel degenerative disc disease and facet arthropathy present. Soft tissues: Negative for abdominal wall hernia. IMPRESSION: 1. Generalized enteritis. 2. No bowel obstruction. 3. No abscess. 4. Colonic diverticulosis, without diverticulitis. 5. Cholelithiasis, without cholecystitis. 6. Hepatic steatosis. Dictated and Authenticated by: Smith Hilton MD. Ordering:SOFIE Mtz MD
--- NOTE | 2022-09-20 20:20 | DI.VRAD_ITS ---
PROCEDURE INFORMATION: Exam: XR Chest Exam date and time: 09/20/2022 7:47 PM Age: 82 years old Clinical indication: Other: N/v, ? aspiration TECHNIQUE: Imaging protocol: Radiologic exam of the chest. Views: 2 views. COMPARISON: CR XR PORTABLE CHEST AP 08/08/2022 11:55 AM FINDINGS: Lungs: Unremarkable. No consolidation. No vascular congestion. Pleural spaces: Unremarkable. No pleural effusion. No pneumothorax. Heart/Mediastinum: Unremarkable. No cardiomegaly. Bones/joints: Mild thoracic dextroscoliosis. Soft tissues: No radiopaque foreign bodies. IMPRESSION: No acute cardiopulmonary abnormality. No significant basilar consolidation. Dictated and Authenticated by: Smith Hilton MD. Ordering:SOFIE Mtz MD
--- NOTE | 2022-09-20 21:21 | W.EDPROG ---
Date of service: 09/20/22 Time of Service: 22:00 Medical Decision Making Patient signed out to me by Dr. Stanton. This 82-year-old female patient began Augmentin today for sinusitis and 2 hours later had sudden onset of nausea and vomiting. She evidently was vomiting profusely when she got to the ER she had some abdominal pain and felt a little bit bloated. Patient had a normal CBC, lactate of 1.9, AST 45, ALT of 67, glucose 126, creatinine of 1.1, UA positive for 30 protein trace of ketones and small amount of bili. She does have a history of autoimmune hepatitis. She reports that her nausea feels a lot better now and I have reassured her that her CT abdomen and pelvis is relatively benign except for perhaps some enteritis. She was on the Augmentin for some sinus congestion for the past 2 weeks. There is no fever or chills. I have asked her to stop the Augmentin and follow-up with her primary care doctor. She is going to do a p.o. challenge with rodrigo flores right now. If her some Zofran to go home with. She will return for pain localized to 1 area, bloody diarrhea, fever of 100.4 or above, inability to keep any fluids down, any other concerns. Medical Records Medical records reviewed: Yes I reviewed the patient's medical records. Imaging Data Radiologic Study: Imaging: X-Ray and CT Scan Radiologist's impression: Exam(s) PROCEDURE INFORMATION: Exam: XR Chest Exam date and time: 09/20/2022 7:47 PM Age: 82 years old Clinical indication: Other: N/v, ? aspiration TECHNIQUE: Imaging protocol: Radiologic exam of the chest. Views: 2 views. COMPARISON: CR XR PORTABLE CHEST AP 08/08/2022 11:55 AM FINDINGS: Lungs: Unremarkable. No consolidation. No vascular congestion. Pleural spaces: Unremarkable. No pleural effusion. No pneumothorax. Heart/Mediastinum: Unremarkable. No cardiomegaly. Bones/joints: Mild thoracic dextroscoliosis. Soft tissues: No radiopaque foreign bodies. IMPRESSION: No acute cardiopulmonary abnormality. No significant basilar consolidation. Dictated and Authenticated by: Smith Hilton MD. Ordering:SOFIE Mtz MD Exam(s) PROCEDURE INFORMATION: Exam: CT Abdomen And Pelvis With Contrast Exam date and time: 09/20/2022 7:39 PM Age: 82 years old Clinical indication: Vomiting; Patient HX: N/v, abdominal pain TECHNIQUE: Imaging protocol: Computed tomography of the abdomen and pelvis with contrast. Radiation optimization: All CT scans at this facility use at least one of these dose optimization techniques: automated exposure control; mA and/or kV adjustment per patient size (includes targeted exams where dose is matched to clinical indication); or iterative reconstruction. Contrast material: OMNIPAQUE 350; Contrast volume: 100 ml; Contrast route: INTRAVENOUS (IV);? COMPARISON: CT CHEST ABD PELVIS WITH CONTRAST 11/01/2015 11:55 PM FINDINGS: Lungs: Mild dependent atelectasis/edema noted in the lung bases. Liver: Liver attenuation is low. Negative for mass or abscess. Gallbladder and bile ducts: Multiple small calcified stones layer dependently in the gallbladder. No inflammatory change. No ductal dilatation. Pancreas: Normal. No ductal dilation. Spleen: Normal. No splenomegaly. Adrenal glands: Normal. No mass. Kidneys and ureters: Symmetric enhancement. Negative for hydronephrosis. Ureters are not dilated. No stones are observed. Stomach and bowel: Unremarkable stomach. Nondilated small bowel. Fat planes around loops of small bowel are indistinct. There are no inflammatory changes observed around the colon. Moderate gas and stool are noted in the colon. Scattered diverticula are present in the colon. Appendix: Normal appendix. Intraperitoneal space: Mild mesenteric fat stranding. No significant free fluid. Negative for free air. Negative for abscess. Vasculature: Moderate vascular calcifications. Negative for abdominal aortic aneurysm. Lymph nodes: Mesenteric lymph nodes are mildly prominent. Negative for pathologic lymphadenopathy. Urinary bladder: Unremarkable as visualized. Reproductive: The uterus is surgically absent. Negative for adnexal mass or cyst. Bones/joints: Mild levoscoliosis noted. Endplate depression noted at L2. Multilevel degenerative disc disease and facet arthropathy present. Soft tissues: Negative for abdominal wall hernia. IMPRESSION: 1. ? Generalized enteritis. 2. ? No bowel obstruction. 3. ? No abscess. 4. ? Colonic diverticulosis, without diverticulitis. 5. ? Cholelithiasis, without cholecystitis. 6. ? Hepatic steatosis. Dictated and Authenticated by: Smith Hilton MD. Ordering:SOFIE Mtz MD Lab Data Lab results reviewed: Yes I reviewed the patient's lab results. Lab results narrative: See above note. Sign Out Sign Out Data: Sign Out Comment: hx of hysterectomy, started augmentin today for sinusitis, a few hours later started to have n/v with abdominal pain, pending ct abd/pelvis and response to zofran Last updated by Smith Stanton MD at 09/20/22 19:37 Discharge Plan Disposition Patient Disposition: Home Condition: Improving Discharge Details Clinical Impression: Abdominal pain, N&V (nausea and vomiting) Primary Care Provider: Shivani Arenas ED Provider: Mena Claudio Home Meds and New Rx's Prescriptions: New ondansetron 4 mg tablet,disintegrating 4 mg PO Q8H PRN (Reason: nausea and vomiting) Qty: 20 0RF Continued multivitamin [Daily Vitamin] 1 EACH tablet 1 ea PO DAILY lutein extract-zeaxanthin ext 1 EACH capsule 1 ea PO DAILY Patient Comments: unsure of dose-LH salmon oil-omega-3 fatty acids [[place] Oil-1000] 1 EACH capsule 1 ea PO DAILY fluticasone propionate 16 GM spray,suspension 2 spry NS DAILY PRNQty: 1 levothyroxine 50 MCG tablet 50 mcg PO DAILY Qty: 90 naproxen sodium [Aleve] 220 MG tablet 220 mg PO PRN Discharge Instructions Instructions: Acute Nausea and Vomiting (ED), Abdominal Pain (ED) Additional Instructions: Clear fluids and bland diet as tolerated. Zofran 4 to 8 mg every 8 hours as needed for nausea. Return to ED for abdominal pain localized to 1 area, 100.4 or above, bloody diarrhea emesis, any other concerns. Recheck with your PCP in 24 to 48 hours.
[2022-09-20] MEDS: Ondansetron O.D.T. 4 MG TABEF 8 MG PO (21:51)
== END 2022-09-20 22:05 | disposition home or self-care (01) ==
PROVIDERS: Emergency Medicine; Emergency Provider Emergency Medicine; PCP Student in an Organized Health Care Education/Training Program
DX: R10.9 Unspecified abdominal pain (principal); R11.2 Nausea with vomiting, unspecified; K74.69 Other cirrhosis of liver; K75.4 Autoimmune hepatitis
CPT/HCPCS: 80053; 80076; 83690; 93005; 96361; 96374; 99285; 71046; 74177; 81003; 81015; 83605; 83735; 84443; 84484; 85025; 85610; 85730; 93010; 99284; J2405; J3490